=== PATIENT | male | born 2000 | race Two or more races ===

== ENCOUNTER 2021-10-28 02:12 | Emergency (ER) | payer SELFPAY ==
[~2021-10-28] VITALS: Ht 170.2 cm; Wt 95.3 kg
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
[2021-10-28] MEDS ORDERED: KETOROLAC TROMETHAMINE INJ 30 MG/ML VIAL ONE (02:30)
[2021-10-28] MEDS ORDERED: CYCLOBENZAPRINE 10 MG TABLET ONE (02:30)
[2021-10-28] MEDS ORDERED: KETOROLAC TROMETHAMINE INJ 60 MG/2 ML VIAL IM ONE (02:30)
[2021-10-28] MEDS ORDERED: CYCLOBENZAPRINE 10 MG TABLET PO ONE (02:30)
--- NOTE | 2021-10-28 02:35 | NUR ---
XRAY AT BEDSIDE
[2021-10-28] MEDS ORDERED: NAPR-1164 PO (04:54)
[2021-10-28 04:59] VITALS: BP 138/80
--- NOTE | 2021-10-28 04:59 | NUR ---
Patient discharged to home in stable condition. Written and verbal after care instructions given. Patient verbalizes understanding of instruction.
== END 2021-10-28 04:59 | disposition home or self-care (01) ==
LOC: ER 02:15
DX: S40.012A Contusion of left shoulder, initial encounter (principal); Z79.1 Long term (current) use of non-steroidal anti-inflammatories (NSAID); V89.2XXA Person injured in unspecified motor-vehicle accident, traffic, initial encounter; Y93.89 Activity, other specified; Y92.89 Other specified places as the place of occurrence of the external cause; Y99.8 Other external cause status
CPT/HCPCS: 73030; 96372; 99283; J1885